=== PATIENT | female | born 1975 | race African-American/Black ===

== ENCOUNTER 2019-12-01 15:55 | Emergency (ER) | payer MEDICAID ==
[~2019-12-01] VITALS: Ht 152.4 cm; Wt 61.0 kg
[~2019-12-01 15:55] MED LIST: AMLO-337 PO; DULO30CA2 PO; TRAM50TA3 PO; TRAZ-251 PO
[2019-12-01] MEDS ORDERED: ASPIRIN 81MG TABLET PO ONE (21:00)
[2019-12-01] MEDS ORDERED: VISCOUS LIDOCAINE 2% 15 ML UDC PO ONE (21:00)
[2019-12-01] MEDS ORDERED: MAGNESIUM/ALUMINUM HYDROXIDE/SIMETHICONE 30ML UDC PO ONE (21:00)
[2019-12-01 22:05] LABS: CLARITY URINE CLEAR (CLEAR); COLOR URINE DARK YELLOW (YELLOW); KETONES URINE NEGATIVE (NEGATIVE); LEUKOCYTE ESTERASE URINE 1+ (NEGATIVE); NITRITE URINE NEGATIVE (NEGATIVE); OCCULT BLOOD URINE NEGATIVE (NEGATIVE); PH URINE 7.5 (4.5-8.0); PROTEIN URINE NEGATIVE (NEGATIVE); SPECIFIC GRAVITY URINE 1.015 (1.005-1.030); UROBILINOGEN URINE 0.2 E.U./dL (0.2-1.0)
[2019-12-01 22:08] LABS: BASOPHILS % 0.6 % (0.0-2.0); EOSINOPHILS % 1.3 % (0.0-5.0); HEMATOCRIT. 27.1 % (36.0-48.0); HEMOGLOBIN. 9.1 g/dL (12.0-16.0); LYMPHOCYTES % 12.9 % (20.0-50.0); MEAN CORPUSCULAR HEMOGLOBIN 34.3 pg (28.0-32.0); MEAN PLATELET VOLUME 7.9 fl (7.4-10.4); MONOCYTES % 4.2 % (2.0-8.0); PLATELET 260 x1000/uL (130-400); RED BLOOD CELL COUNT 2.64 mill/uL (4.2-5.4); RED CELL DISTRIBUTION WIDTH 17.3 % (11.6-14.6)
[2019-12-01 22:11] LABS: INR 1.4; PARTIAL THROMBOPLASTIN TIME 29.6 sec (23.4-31.0); PROTHROMBIN TIME 14.4 sec (9.6-11.0)
[2019-12-01 22:13] LABS: CHLORIDE 106 mEq/L (98-107)
[2019-12-01] MEDS ORDERED: HYDROCODONE/ACETAMINOPHEN 5/325MG TABLET PO ONE (22:15)
[2019-12-01] MEDS ORDERED: CEFTRIAXONE 1 G PREMIX 50 ML IV ONE (22:30)
[2019-12-01 23:15] VITALS: BP 122/74
== END 2019-12-02 01:09 | disposition home or self-care (01) ==
LOC: ER 16:02
DX: G89.29 Other chronic pain (principal); R07.9 Chest pain, unspecified; K72.90 Hepatic failure, unspecified without coma; J90 Pleural effusion, not elsewhere classified; I48.91 Unspecified atrial fibrillation; Z79.899 Other long term (current) drug therapy
CPT/HCPCS: 36415; 71045; 80053; 81003; 83690; 83880; 84484; 85025; 85610; 85730; 93005; 96365; 99284; J0696; Z7610

== ENCOUNTER 2019-12-12 05:02 | Emergency (ER) | payer MEDICAID, MEDICARE ==
[~2019-12-12] VITALS: Ht 152.4 cm; Wt 62.4 kg
[2019-12-12] MEDS ORDERED: FUROSEMIDE 40MG/4ML VIAL IVP ONE (06:45)
[2019-12-12 07:34] LABS: CHLORIDE 106 mEq/L (98-107)
[2019-12-12 07:41] LABS: BASOPHILS % 0.5 % (0.0-2.0); EOSINOPHILS % 1.7 % (0.0-5.0); HEMOGLOBIN. 8.7 g/dL (12.0-16.0); LYMPHOCYTES % 14.1 % (20.0-50.0); MEAN CORPUSCULAR HEMOGLOBIN 33.9 pg (28.0-32.0); MEAN CORPUSCULAR VOLUME 100.8 fL (81.0-99.0); MEAN PLATELET VOLUME 8.2 fl (7.4-10.4); MONOCYTES % 6.1 % (2.0-8.0); NEUTROPHILS % 77.6 % (40.0-76.0); PLATELET 260 x1000/uL (130-400); RED BLOOD CELL COUNT 2.58 mill/uL (4.2-5.4)
[2019-12-12 07:42] LABS: HCG SCREEN NEGATIVE
[2019-12-12 07:52] LABS: INR 1.4; PROTHROMBIN TIME 13.7 sec (9.6-11.0)
[2019-12-12] MEDS: POTASSIUM CHLORIDE 20MEQ TABLET SR PO ONE ×2 (08:31→09:13)
[2019-12-12] MEDS ORDERED: POTASSIUM CHLORIDE 20MEQ/PACKET PO ONE (09:00)
[2019-12-12 13:42] VITALS: BP 110/60
== END 2019-12-12 14:00 | disposition short-term general hospital (02) ==
LOC: ER 05:02 → EDBEDREQTM 06:43 → CANBEDREQ 13:33 → ER 14:00
DX: E87.70 Fluid overload, unspecified (principal); D53.9 Nutritional anemia, unspecified; K74.60 Unspecified cirrhosis of liver; R18.8 Other ascites; I11.0 Hypertensive heart disease with heart failure; I50.9 Heart failure, unspecified; K76.9 Liver disease, unspecified; I20.9 Angina pectoris, unspecified; Z86.73 Personal history of transient ischemic attack (TIA), and cerebral infarction without residual deficits; Z79.899 Other long term (current) drug therapy
CPT/HCPCS: 36415; 71045; 80053; 81025; 83880; 84484; 84703; 85025; 85610; 93005; 96374; 99285; J1940

== ENCOUNTER 2020-01-14 03:24 | Inpatient (IN) | payer MEDICARE ==
[~2020-01-14] VITALS: Ht 152.4 cm; Wt 49.9 kg
[2020-01-14] MEDS ORDERED: ONDANSETRON HCL 4MG/2ML INJ IV STA (03:44)
[2020-01-14] MEDS ORDERED: MORPHINE SULFATE 4 MG/ML CPJ (NOT FOR IM USE) IV STA (03:44)
[2020-01-14 04:17] LABS: BASOPHILS % 0.5 % (0.0-2.0); EOSINOPHILS % 2.1 % (0.0-5.0); HEMOGLOBIN. 11.6 g/dL (12.0-16.0); LYMPHOCYTES % 24.1 % (20.0-50.0); MEAN CORPUSCULAR HEMOGLOBIN 30.5 pg (28.0-32.0); MEAN CORPUSCULAR VOLUME 89.7 fL (81.0-99.0); MEAN PLATELET VOLUME 7.7 fl (7.4-10.4); MONOCYTES % 7.7 % (2.0-8.0); NEUTROPHILS % 65.6 % (40.0-76.0); PLATELET 209 x1000/uL (130-400); RED CELL DISTRIBUTION WIDTH 13.5 % (11.6-14.6)
[2020-01-14 04:19] LABS: CHLORIDE 100 mEq/L (98-107)
[2020-01-14 04:20] LABS: HCG SCREEN NEGATIVE
[2020-01-14] MEDS ORDERED: SODIUM BICARBONATE 8.4% 1 MEQ/ML 50ML SYR IV ONE (06:30)
[2020-01-14] MEDS ORDERED: INSULIN REGULAR (HUMULIN R) 300UNITS/3ML IV ONE (06:30)
[2020-01-14] MEDS ORDERED: DEXTROSE 50% WATER 50ML SYRINGE IV ONE (06:30)
[2020-01-14] MEDS ORDERED: IOHEXOL-350 100 ML BOTTLE ONE (07:35)
[2020-01-14] MEDS ORDERED: DOCUSATE SODIUM 100MG CAPSULE PO PRN (11:15)
[2020-01-14] MEDS ORDERED: ACETAMINOPHEN 650MG/20.3ML UDC GT PRN (11:15)
[2020-01-14] MEDS ORDERED: GUAIFENESIN 200MG/10ML SUGAR FREE UDC PO PRN (11:15)
[2020-01-14] MEDS ORDERED: IPRATROPIUM/ALBUTEROL 0.5-3(2.5)MG/3ML NEB NEB PRN (11:15)
[2020-01-14] MEDS ORDERED: ACETAMINOPHEN 325MG TABLET PO PRN (11:15)
[2020-01-14] MEDS ORDERED: ONDANSETRON HCL 4MG/2ML INJ IV PRN (11:15)
[2020-01-14] MEDS ORDERED: MAGNESIUM/ALUMINUM HYDROXIDE/SIMETHICONE 30ML UDC PO PRN (11:15)
[2020-01-14] MEDS ORDERED: DIPHENHYDRAMINE 50MG/ML VIAL IV PRN (11:15)
[2020-01-14] MEDS ORDERED: ACETAMINOPHEN 650MG SUPP PR PRN ×2 (11:15)
[2020-01-14] MEDS ORDERED: NA PHOS,M-B/NA PHOS,DI-BA ENEMA 118ML PR PRN (11:15)
[2020-01-14] MEDS ORDERED: CLONIDINE 0.1MG TABLET PO PRN (11:15)
[2020-01-14] MEDS ORDERED: LORAZEPAM 0.5MG TABLET PO PRN (11:15)
[2020-01-14 11:48] LABS: BG BASE EXCESS 4.8 mmol/L (-2.0-2.0); BG CARBOXYHEMOGLOBIN 0.3 % (0.5-1.5); BG DEOXYHEMOGLOBIN 3.9 % (0.0-5.0); BG FRACTION INSPIRED OXYGEN 21; BG HCO3 ACT 29.1 mmol/L (22.0-26.0); BG METHEMOGLOBIN 0.2 % (0.0-1.5); BG OXYGEN SATURATION 96.1 % (92.0-98.5); BG OXYHEMOGLOBIN 95.6 % (94.0-97.0); BG PCO2 42.3 mmHg (35.0-45.0); BG PH 7.456 (7.350-7.450); BG PO2 82.8 mmHg (75.0-100.0); BG SAMPLE SITE RIGHT RADIAL; BG VENT MODE ROOM AIR
[2020-01-14 12:01] LABS: BASOPHILS % 0.8 % (0.0-2.0); EOSINOPHILS % 2.2 % (0.0-5.0); HEMATOCRIT. 32.2 % (36.0-48.0); LYMPHOCYTES % 25.9 % (20.0-50.0); MEAN CORPUSCULAR HEMOGLOBIN 30.6 pg (28.0-32.0); MEAN CORPUSCULAR VOLUME 89.5 fL (81.0-99.0); MEAN PLATELET VOLUME 7.2 fl (7.4-10.4); MONOCYTES % 7.1 % (2.0-8.0); PLATELET 221 x1000/uL (130-400); RED CELL DISTRIBUTION WIDTH 13.3 % (11.6-14.6)
[2020-01-14 12:06] LABS: CHLORIDE 99 mEq/L (98-107); INR 1.2
[2020-01-14] MEDS ORDERED: PIPERACILLIN/TAZ 3.375G PREMIX 50 ML IV NR (13:00)
[2020-01-14] MEDS: PANTOPRAZOLE SODIUM 40 MG/VIAL IV SCH (13:00)
[2020-01-14 16:00] VITALS: BP 96/60
[2020-01-14 16:25] VITALS: BP 94/53
[2020-01-14] MEDS ORDERED: METO25TA6 MT (16:53)
[2020-01-14] MEDS ORDERED: SPIR25TA6 MT (16:53)
[2020-01-14] MEDS ORDERED: INFLUENZA VIRUS VACCINE(AFLURIA) 0.5ML SYR IM ONE (18:15)
[2020-01-14] MEDS: HYDROCODONE/ACETAMINOPHEN 5/325MG TABLET PO PRN (18:23)
[2020-01-14 20:00] VITALS: BP 93/54
[2020-01-14] MEDS: PIPERACILLIN/TAZOBACTAM 3.375 G in DEXT 5% WATER 100 ML IV SCH (20:39)
[2020-01-14] MEDS: ENOXAPARIN 40MG/0.4ML SYR SUBCUT SCH (20:42)
[2020-01-14 20:57] LABS: CREATINE KINASE 83 IU/L (26-192)
[2020-01-14 20:58] LABS: CREATINE KINASE MB FRACTION < 1.0 ng/mL (0.5-3.6)
[2020-01-15] VITALS: BP 97/50
[2020-01-15] MEDS ORDERED: DEXT 5%/0.9% NACL 1,000 ML IV SCH
[2020-01-15] MEDS: HYDROCODONE/ACETAMINOPHEN 5/325MG TABLET PO PRN ×2 (01:28→20:14)
[2020-01-15] MEDS: PIPERACILLIN/TAZOBACTAM 3.375 G in DEXT 5% WATER 100 ML IV SCH ×4 (02:29→20:14)
[2020-01-15 04:00] VITALS: BP 108/52
[2020-01-15 06:49] LABS: CHLORIDE 98 mEq/L (98-107)
[2020-01-15 06:50] LABS: BASOPHILS % 0.5 % (0.0-2.0); EOSINOPHILS % 2.7 % (0.0-5.0); HEMATOCRIT. 29.8 % (36.0-48.0); HEMOGLOBIN. 10.4 g/dL (12.0-16.0); LYMPHOCYTES % 37.6 % (20.0-50.0); MEAN CORPUSCULAR HEMOGLOBIN 31.1 pg (28.0-32.0); MEAN CORPUSCULAR VOLUME 89.4 fL (81.0-99.0); MONOCYTES % 6.8 % (2.0-8.0); NEUTROPHILS % 52.4 % (40.0-76.0); PLATELET 196 x1000/uL (130-400); RED BLOOD CELL COUNT 3.33 mill/uL (4.2-5.4); RED CELL DISTRIBUTION WIDTH 13.2 % (11.6-14.6)
[2020-01-15 07:02] LABS: T4 FREE 1.02 ng/dL (0.76-1.46)
[2020-01-15 07:07] LABS: CREATINE KINASE 73 IU/L (26-192); CREATINE KINASE MB FRACTION < 1.0 ng/mL (0.5-3.6); HDL CHOLESTEROL 66 mg/dL (40-59); LDL CHOLESTEROL 111 mg/dL (5-100)
[2020-01-15 08:00] VITALS: BP 103/51
[2020-01-15] MEDS ORDERED: REGADENOSON 0.4 MG/5 ML IV ONE (08:20)
[2020-01-15] MEDS ORDERED: REGADENOSON 0.4 MG/5 ML IV NR (09:00)
[2020-01-15] MEDS: ASPIRIN 81MG EC TABLET PO SCH (09:44)
[2020-01-15] MEDS: PANTOPRAZOLE SODIUM 40 MG/VIAL IV SCH (09:44)
[2020-01-15 12:00] VITALS: BP 91/53
[2020-01-15 16:18] VITALS: BP 99/48
[2020-01-15] MEDS ORDERED: MAGNESIUM 2 G PREMIX 50 ML IV NR (17:00)
[2020-01-15 20:00] VITALS: BP 103/53
[2020-01-15] MEDS: ENOXAPARIN 40MG/0.4ML SYR SUBCUT SCH (20:15)
[2020-01-16] VITALS: BP 102/51
[2020-01-16] MEDS: PIPERACILLIN/TAZOBACTAM 3.375 G in DEXT 5% WATER 100 ML IV SCH ×2 (02:44→09:16)
[2020-01-16 04:00] VITALS: BP 114/54
[2020-01-16 06:31] LABS: HEMATOCRIT 28.5 % (36.0-48.0); HEMOGLOBIN 9.9 g/dL (12.0-16.0); MEAN CORPUSCULAR HEMOGLOBIN 31.1 pg (28.0-32.0); MEAN CORPUSCULAR VOLUME 89.3 fL (81.0-99.0); PLATELET 169 x1000/uL (130-400); RED BLOOD CELL COUNT 3.19 mill/uL (4.2-5.4); RED CELL DISTRIBUTION WIDTH 12.9 % (11.6-14.6)
[2020-01-16 06:57] LABS: CHLORIDE 102 mEq/L (98-107)
[2020-01-16 08:00] VITALS: BP 110/58
[2020-01-16] MEDS: ASPIRIN 81MG EC TABLET PO SCH (09:00)
[2020-01-16] MEDS: HYDROCODONE/ACETAMINOPHEN 5/325MG TABLET PO PRN (09:16)
[2020-01-16 11:44] VITALS: BP 118/68
[2020-01-16 11:48] VITALS: BP 118/68
== END 2020-01-16 13:30 | disposition home or self-care (01) | DRG 194 ==
LOC: ER 03:24 → 5WST 06:23 → ENRESERV 14:34
PROVIDERS: ADMIT Internal Medicine; ATTEND Internal Medicine
DX: I11.0 Hypertensive heart disease with heart failure (principal); K76.6 Portal hypertension; E83.42 Hypomagnesemia; K70.30 Alcoholic cirrhosis of liver without ascites; E87.1 Hypo-osmolality and hyponatremia; E87.5 Hyperkalemia; M94.0 Chondrocostal junction syndrome [Tietze]; I50.33 Acute on chronic diastolic (congestive) heart failure; D64.9 Anemia, unspecified; I86.4 Gastric varices; F32.9 Major depressive disorder, single episode, unspecified; F41.9 Anxiety disorder, unspecified; F10.21 Alcohol dependence, in remission; I48.91 Unspecified atrial fibrillation; I25.10 Atherosclerotic heart disease of native coronary artery without angina pectoris; D72.829 Elevated white blood cell count, unspecified; K75.81 Nonalcoholic steatohepatitis (NASH); R07.89 Other chest pain; Z86.73 Personal history of transient ischemic attack (TIA), and cerebral infarction without residual deficits
CPT/HCPCS: 36415; 36600; 71045; 71275; 76700; 78452; 80053; 80061; 82105; 82140; 82375; 82550; 82553; 82805; 82962; 83605; 83735; 83880; 84100; 84439; 84443; 84484; 84703; 85025; 85027; 87804; 90686; 93005; 93017; 93306; 93970; 97162; 99285; A9500; C9113; J1650; J1815; J2270; J2405; J2543; J2785; J3475; J3490; J7042; J7060; Q9967

== ENCOUNTER 2020-03-11 06:39 | Emergency (ER) | payer MEDICARE ==
[~2020-03-11] VITALS: Ht 152.4 cm; Wt 50.0 kg
[~2020-03-11 06:39] MED LIST changes: -DULO30CA2 PO; +METO25TA6 MT; +SPIR25TA6 MT; -TRAZ-251 PO
[2020-03-11 08:03] LABS: BASOPHILS % 0.5 % (0.0-2.0); EOSINOPHILS % 1.8 % (0.0-5.0); HEMATOCRIT. 35.8 % (36.0-48.0); HEMOGLOBIN. 11.8 g/dL (12.0-16.0); LYMPHOCYTES % 31.1 % (20.0-50.0); MEAN CORPUSCULAR HEMOGLOBIN 27.1 pg (28.0-32.0); MEAN CORPUSCULAR VOLUME 82.4 fL (81.0-99.0); MEAN PLATELET VOLUME 7.1 fl (7.4-10.4); MONOCYTES % 6.3 % (2.0-8.0); NEUTROPHILS % 60.3 % (40.0-76.0); PLATELET 143 x1000/uL (130-400); RED BLOOD CELL COUNT 4.35 mill/uL (4.2-5.4); RED CELL DISTRIBUTION WIDTH 14.6 % (11.6-14.6)
[2020-03-11 08:11] LABS: CHLORIDE 106 mEq/L (98-107)
[2020-03-11 08:16] LABS: ETHANOL BLOOD 207 mg/dL
[2020-03-11] MEDS ORDERED: POTASSIUM CHLORIDE 20MEQ TABLET SR PO ONE (08:45)
[2020-03-11] MEDS ORDERED: LORAZEPAM 1MG TABLET PO ONE (08:45)
[2020-03-11 08:52] LABS: *AMPHETAMINES SCREEN URINE NEGATIVE (NEGATIVE); *BARBITURATES SCREEN URINE NEGATIVE (NEGATIVE); *BENZODIAZEPINES SCREEN URINE NEGATIVE (NEGATIVE); *COCAINE SCREEN URINE NEGATIVE (NEGATIVE)
[2020-03-11 08:53] LABS: CANNABINOID URINE SCREEN NEGATIVE (NEGATIVE); METHADONE URINE SCREEN NEGATIVE (NEGATIVE); OPIATES URINE SCREEN NEGATIVE (NEGATIVE); PHENCYCLIDINE URINE SCREEN NEGATIVE (NEGATIVE)
[2020-03-11] MEDS ORDERED: CHLORDIAZEPOXIDE 25MG CAPSULE PO ONE (09:15)
[2020-03-11 12:13] VITALS: BP 116/67
== END 2020-03-11 12:19 | disposition home or self-care (01) ==
LOC: ER 06:59 → EDBEDREQSVC 09:56 → EDBEDREQ 09:57 → CANBEDREQ 10:00 → ER 12:19
DX: R07.89 Other chest pain (principal); F10.129 Alcohol abuse with intoxication, unspecified; Y90.7 Blood alcohol level of 200-239 mg/100 ml; E87.6 Hypokalemia; I11.0 Hypertensive heart disease with heart failure; I50.9 Heart failure, unspecified; K76.9 Liver disease, unspecified; Z86.73 Personal history of transient ischemic attack (TIA), and cerebral infarction without residual deficits
CPT/HCPCS: 36415; 71045; 80053; 80305; 80320; 83880; 84484; 85025; 93005; 99285; G0480

== ENCOUNTER 2020-03-28 02:40 | Emergency (ER) | payer MEDICARE ==
[2020-03-28 02:53] VITALS: BP 137/95
[2020-03-28] MEDS ORDERED: DIPHENHYDRAMINE 25MG CAPSULE PO ONE (03:30)
== END 2020-03-28 06:24 | disposition home or self-care (01) ==
LOC: ER 02:40
DX: L29.9 Pruritus, unspecified (principal); I48.91 Unspecified atrial fibrillation; I11.0 Hypertensive heart disease with heart failure; I50.9 Heart failure, unspecified; Z86.73 Personal history of transient ischemic attack (TIA), and cerebral infarction without residual deficits; I20.9 Angina pectoris, unspecified; Z79.899 Other long term (current) drug therapy
CPT/HCPCS: 99282; Q0163

== ENCOUNTER 2020-07-21 00:47 | Emergency (ER) | payer MEDICAID, MEDICARE ==
[~2020-07-21] VITALS: Ht 152.4 cm; Wt 60.0 kg
[2020-07-21] MEDS ORDERED: ASPIRIN 325MG EC TABLET PO ONE (01:30)
[2020-07-21] MEDS ORDERED: KETOROLAC 15MG/ML VIAL IV ONE (01:45)
[2020-07-21 01:49] LABS: BASOPHILS % 0.9 % (0.0-2.0); HEMATOCRIT. 34.2 % (36.0-48.0); HEMOGLOBIN. 11.7 g/dL (12.0-16.0); LYMPHOCYTES % 13.4 % (20.0-50.0); MEAN CORPUSCULAR HEMOGLOBIN 30.9 pg (28.0-32.0); MEAN PLATELET VOLUME 8.1 fl (7.4-10.4); MONOCYTES % 9.3 % (2.0-8.0); NEUTROPHILS % 74.4 % (40.0-76.0); PLATELET 101 x1000/uL (130-400); RED BLOOD CELL COUNT 3.79 mill/uL (4.2-5.4); RED CELL DISTRIBUTION WIDTH 16.4 % (11.6-14.6)
[2020-07-21 01:55] LABS: CHLORIDE 103 mEq/L (98-107)
[2020-07-21] MEDS ORDERED: POTASSIUM CHLORIDE 20MEQ TABLET SR PO ONE (03:15)
[2020-07-21 04:25] VITALS: BP 129/74
== END 2020-07-21 04:37 | disposition home or self-care (01) ==
LOC: ER 00:47
DX: R07.89 Other chest pain (principal); E87.6 Hypokalemia; I11.0 Hypertensive heart disease with heart failure; I50.9 Heart failure, unspecified; I48.91 Unspecified atrial fibrillation; Z79.01 Long term (current) use of anticoagulants; E78.00 Pure hypercholesterolemia, unspecified
CPT/HCPCS: 36415; 71045; 80053; 81025; 83880; 84484; 85025; 93005; 96374; 99285; J1885